=== PATIENT | male | born 1975 | race Caucasian/White ===

== ENCOUNTER → 2017-07-19 | Outpatient (CLI) | payer BC ==
--- NOTE | 2017-07-19 13:28 | RADIOLOGY REPORT (SQ) ---
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 TECHNIQUE: Static and realtime perales scale imaging of the scrotum and testes. Selected color Doppler and spectral images recorded to document blood flow. LIMITATIONS: None. FINDINGS: RIGHT: TESTICLE: Normal size. Normal echotexture. Normal blood flow. No mass. EPIDIDYMIS: 5 mm cyst. HYDROCELE OR VARICOCELE: No. HERNIA OR EXTRA-TESTICULAR MASS: No. OTHER: No other significant finding. LEFT: TESTICLE: Normal size. Normal echotexture. Normal blood flow. No mass. EPIDIDYMIS: Normal. HYDROCELE OR VARICOCELE: No. HERNIA OR EXTRA-TESTICULAR MASS: No. OTHER: No other significant finding. IMPRESSION: NO EVIDENCE OF TESTICULAR MASS OR TORSION. TECHNICAL DOCUMENTATION: JOB ID: [id number] [employer]- All Rights Reserved Reading location - IP/workstation name: [email or web address]
== END ==
LOC: RAD 09:15
PROVIDERS: ATTEND Student in an Organized Health Care Education/Training Program
DX: E29.1 Testicular hypofunction (principal)
CPT/HCPCS: 76870

== ENCOUNTER 2017-09-26 20:41 | Emergency (ER) | payer BC ==
[2017-09-26] MEDS ORDERED: IBUPROFEN 800 MG TABLET PO ONE (21:08)
[2017-09-26] MEDS ORDERED: LIDOCAINE 1% INJ-PF (10 MG/ML) 30 ML SDV INJ ONE (21:08)
--- NOTE | 2017-09-26 22:16 | ER Document Report ---
HPI - HPI Patient complains to provider of: Mouth laceration Onset: Just prior to arrival Onset/Duration: Sudden Quality of pain: Achy Pain Level: 2 Context: Patient states that he tripped over his dog and fell cutting the inside of his lower lip. Patient denies any head injury or loss of consciousness. Patient without any nausea or vomiting. Patient states his tetanus immunization is currently up-to-date. Associated Symptoms: Other - Mouth laceration Exacerbated by: Denies Relieved by: Denies Similar symptoms previously: No Recently seen / treated by doctor: No - ROS ROS below otherwise negative: Yes Systems Reviewed and Negative: Yes All other systems reviewed and negative - CONSTITUTIONAL Constitutional: DENIES: Fever - DERM Skin Color: Normal Skin Problems: Laceration Past Medical History - General Information source: Patient - Social History Smoking Status: Never Smoker Frequency of alcohol use: None Drug Abuse: None Occupation: M[employer] Work[employer] Lives with: Family Family History: Reviewed & Not Pertinent Patient has suicidal ideation: No Patient has homicidal ideation: No - Medical History Medical History: Negative Renal/ Medical History: Denies: Hx Peritoneal Dialysis Past Surgical History: Reports: Hx Orthopedic Surgery - Right knee surgery - Immunizations Hx Diphtheria, Pertussis, Tetanus Vaccination: Yes Vertical Provider Document - CONSTITUTIONAL Agree With Documented VS: Yes Exam Limitations: No Limitations General Appearance: WD/WN, No Apparent Distress - INFECTION CONTROL TRAVEL OUTSIDE OF THE [place] IN LAST 30 DAYS: No - NECK Neck: Normal Inspection - RESPIRATORY Respiratory: No Respiratory Distress - MUSCULOSKELETAL/EXTREMETIES Musculoskeletal/Extremeties: MAEW - NEURO Level of Consciousness: Awake, Alert, Appropriate - DERM Integumentary: Warm, Dry, Laceration - 1.3 cm lac inside lower lip Procedures - Laceration/Wound Repair Face Wound length (cm): 1.3 Wound's Depth, Shape: Irregular Anesthetic type: 1% Lidocaine Wound explored: Clean Wound Repaired With: Sutures Suture Size/Type: 5:0, Other - chromic gut Number of Sutures: 2 Post-procedure NV exam normal: Yes Complications: No Mouth/Teeth picture: 1 - 1.3 cm lac to inside lower lip Discharge - Discharge Clinical Impression: Laceration of oral cavity Qualifiers: Encounter type: initial encounter Qualified Code(s): S01.512A - Laceration without foreign body of oral cavity, initial encounter Condition: Stable Disposition: HOME, SELF-CARE Instructions: Oral Laceration, Sutured (OM), Prophylactic Antibiotic (OM) Prescriptions: Cephalexin Monohydrate [Keflex 500 mg Capsule] 500 mg PO BID 7 Days capsule Naproxen [Naprosyn 250 Nmg Tablet] 1 tab PO BID #14 tablet Forms: Return to Work Referrals: [facility] [Provider Group] - Follow up as needed
[2017-09-26] MEDS ORDERED: HYDROCODONE/ACETAMINOPHEN 5-325 MG (6 TAB/ER DISP) PO PRN (22:51)
[2017-09-26] MEDS ORDERED: CEPHALEXIN 500 MG CAPSULE PO ONE (22:51)
== END 2017-09-26 23:19 | disposition home or self-care (01) ==
LOC: ER 20:41
PROC: 0CQ1XZZ Repair Lower Lip, External Approach (ICD-10-PCS; principal; 2017-09-26)
DX: S01.511A Laceration without foreign body of lip, initial encounter (principal); W01.0XXA Fall on same level from slipping, tripping and stumbling without subsequent striking against object, initial encounter
CPT/HCPCS: 99282; 12011; J3490

== ENCOUNTER 2019-01-25 08:54 | Day surgery (SDC) | payer BC, OTHER ==
[~2019-01-25 08:54] MED LIST: CLINDAMYCIN 900 MG/D5W RTU 900 MG/50 ML RTUPB IV PRN
[2019-01-25] MEDS ORDERED: ONDANSETRON HCL INJ/PF 4 MG/2 ML SDV ONE (11:36)
[2019-01-25] MEDS ORDERED: DEXAMETHASONE SOD PHOS INJ 10 MG/1 ML VIAL ONE (11:37)
[2019-01-25] MEDS ORDERED: PROPOFOL INJ 200 MG/20 ML VIAL IV ONE (11:37)
[2019-01-25] MEDS ORDERED: MIDAZOLAM 2 MG/2 ML INJ ONE (11:37)
[2019-01-25] MEDS ORDERED: FENTANYL CITRATE INJ/PF 100 MCG/2 ML AMPUL ONE (11:37)
[2019-01-25] MEDS ORDERED: ROCURONIUM BROMIDE INJ 50 MG/5 ML VIAL IV ONE (11:38)
[2019-01-25] MEDS ORDERED: SUCCINYLCHOLINE CHLORIDE INJ 200 MG/10 ML VIAL ONE (11:38)
[2019-01-25] MEDS ORDERED: BUPIVACAINE HCL 0.5%/EPI 1:200000 INJ 1.8 ML CARTRIDGE ONE ×2 (11:42)
--- NOTE | 2019-01-29 08:17 | Operative Report ---
Operative Report-[facility] Operative Report: DATE OF OPERATION: January 25, 2019 PREOPERATIVE DIAGNOSIS: 1. Oropharyngeal neoplasms POSTOPERATIVE DIAGNOSIS: 1. Oropharyngeal neoplasms PROCEDURE: 1. Excision of 3 separate oropharyngeal neoplasms/tumors 2. Exam under anesthesia of the oropharynx Primary Surgeon of Record: Dr. Deshawn Wong MODULAR HOME CREW MEMBER: None Anesthesia Staff: KRISTINA Cardenas ANESTHESIA: General Endotracheal Tube Anesthesia DRAINS: None SPONGE COUNT: Verified Needle Count: N/A SPECIMEN/MATERIALS FORWARD TO THE LAB: 1. 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 ESTIMATED BLOOD LOSS: 3 ml IV FLUIDS: 750 ml COMPLICATIONS: None Findings: 1. 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 2. The tonsils were 2+ in size and cryptic with no obvious tonsillar debris, the soft palatal tissues were redundant, and the uvula was thickened and elongated. INDICATIONS: This is a 43 y/o while male patient who was seen and evaluated in the [place] otolaryngology office. The patient had been referred for and he complained something growing in the back of his throat that he wants removed and evaluated by pathology as he is concerned about cancer. After extensive discussion with the patient the recommendation and plan was to proceed with the excision of 3 grossly obvious oropahryngeal neoplasms/tumors that were noted during his clinic evaluations to include flexible endoscopy. After extensive discussion with the pt. the recommendation and plan due to the multiple tumor sites identified that the procedure be performed in the operating room exam under anesthesia/EUA and excision of all 3 grossly obvious tumor locations with pathology evaluation to include HPV typing with 6, 11, 16, 18, 31, and 33. The procedure and all of the risks and complications were all discussed in detail with the patient. He voiced an understanding of the described surgical plan, were in agreement, and consent was obtained. DESCRIPTION OF OPERATIVE PROCEDURE: The patient was taken to the main operating room and was placed on the operating room table in the supine position. Appropriate monitors were placed. Using mask and IV access general anesthesia was induced. The patient was next transorally intubated without difficulty. The table was then rotated 90 and the patient was positioned and prepped for oropharyngeal EUA and excision the 3 grossly obvious separate tumors. The lips, teeth, tongue, and gums were inspected and noted to be without defect. The patient had a mouth gag inserted. It was opened and the patient was placed into suspension. There was a soft catheter passed through the nose that was used to suspend the soft palate. Findings are as noted above. At this point the the plasma J-hook device was used to excise each of the 3 separate oropharyngeal neoplams and tumors. The device was also used to provide adequate hemostasis. The patient underwent extensive evaluation with a mirror and there were not any additional grossly obvious tumors noted. Normal saline irrigation was performed and was suctioned. Adequate hemostasis was noted. The soft catheter was released and removed from the patients nose. The patient was next released from suspension and the mouth gag was closed. It was opened again and there was again no bleeding noted. It was then removed from the patient's mouth without difficulty. There was no damage to the lips, teeth, tongue, or gums noted. The patient was then returned to the anesthesia staff and was allowed to emerge from general anesthesia. The patient was extubated in the operating room and was transported to the post anesthesia recovery unit in stable condition. There were no complications.
== END 2019-01-25 13:38 | disposition home or self-care (01) ==
LOC: SC 08:54
PROVIDERS: ATTEND Otolaryngology
DX: D10.4 Benign neoplasm of tonsil (principal); D10.39 Benign neoplasm of other parts of mouth; D49.0 Neoplasm of unspecified behavior of digestive system; J34.2 Deviated nasal septum; J34.3 Hypertrophy of nasal turbinates; J30.9 Allergic rhinitis, unspecified; R06.00 Dyspnea, unspecified; M95.0 Acquired deformity of nose; Z79.899 Other long term (current) drug therapy
CPT/HCPCS: 88305 ×2; 00170; 42808; J2250; J3490 ×3; J3010; J0330; J2405; J2704; J1100; 170